=== PATIENT | female | born 1945 | race Caucasian/White ===

== ENCOUNTER → 2020-02-27 | Outpatient (CLI) | payer OTHER ==
--- NOTE | ~2020-02-27 | HC ---
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 HISTORY OF PRESENT ILLNESS: This is a 74-year-old white female who I was asked to see in consultation for possible hyperbaric oxygen therapy given the fact the patient has a surgical wound in a previously irradiated field, which is starting to fail. The patient had a sarcoma removed back in 1992 with subsequent radiation therapy of which she is unsure of the exact amount of dose but does state that she went several times for radiation. The patient subsequently has had a right knee arthroplasty, which became infected and had subsequent removal of the hardware with a spacer placed and myocutaneous flap closure, which failed. The patient has been followed closely by Dr. Dereck Tafoya of Infectious Disease as well as Dr. Ran Mccoy of Plastic Surgery and Dr. Bert Payne of Orthopedics. Dr. Mccoy states he saw the patient today, is concerned that his most recent free flap closure is now starting to fail, which he placed on 02/03/2020. The patient herself states she has essentially minimal pain associated with the surgical wound itself. The patient is very discouraged that the wound has continued to not heal and is optimistic about trying hyperbaric oxygen therapy to possibly salvage the surgical wound and prevent against a possible [id number] amputation. The patient and family are understanding that if the flap continues to fail despite hyperbaric oxygen therapy to aid in the angioneogenesis to help the wound heal, the patient would most likely require an [id number] amputation. Risks and benefits were explained to the patient of hyperbaric oxygen therapy including pulmonary and otic barotrauma and the patient is understanding and wants to proceed with hyperbaric oxygen therapy once insurance has deemed this appropriate. At this time, the patient should qualify for that given the fact the patient has previous radiation to the right lower extremity and subsequent surgical procedure, which is now starting to fail. Please see the complete H and P performed on this patient, which is in [facility]. IMPRESSION: 1. 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 2. 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 3. Degenerative joint disease. PLAN: At this time, we will submit for insurance verification and acceptance for treatment in a soft tissue radionecrosis protocol, which would require approximately 40 hyperbaric oxygen treatments at 2.4 atmospheres absolute with two 5-minute air breaks. Chest x-ray will be performed today as a screening x-ray. Wound care at this time will be continued under the care of Dr. Ran Mccoy. I also spoke at length with the patient about nutritional supplementation to aid in the healing process. By: [id number] Dilip Thakur MD /nt
== END ==
LOC: HYPER 14:18 → RAD 14:21 → HYPER 14:21 → EDBD 14:21 → EDSEX 14:21
DX: T84.53XA Infection and inflammatory reaction due to internal right knee prosthesis, initial encounter (principal); T86.821 Skin graft (allograft) (autograft) failure; B95.2 Enterococcus as the cause of diseases classified elsewhere; D68.2 Hereditary deficiency of other clotting factors; E03.9 Hypothyroidism, unspecified; M47.817 Spondylosis without myelopathy or radiculopathy, lumbosacral region; D68.59 Other primary thrombophilia; G25.81 Restless legs syndrome; K21.9 Gastro-esophageal reflux disease without esophagitis; H40.9 Unspecified glaucoma; M19.90 Unspecified osteoarthritis, unspecified site; F32.9 Major depressive disorder, single episode, unspecified; Z87.891 Personal history of nicotine dependence; Z85.09 Personal history of malignant neoplasm of other digestive organs; Z85.831 Personal history of malignant neoplasm of soft tissue; Z96.621 Presence of right artificial elbow joint; Z79.01 Long term (current) use of anticoagulants; Y83.2 Surgical operation with anastomosis, bypass or graft as the cause of abnormal reaction of the patient, or of later complication, without mention of misadventure at the time of the procedure; Y83.1 Surgical operation with implant of artificial internal device as the cause of abnormal reaction of the patient, or of later complication, without mention of misadventure at the time of the procedure; Y92.89 Other specified places as the place of occurrence of the external cause

== ENCOUNTER → 2020-03-05 | Outpatient (CLI) | payer OTHER | LOC: HYPER 09:12 | DX: T84.53XD Infection and inflammatory reaction due to internal right knee prosthesis, subsequent encounter (principal); L59.8 Other specified disorders of the skin and subcutaneous tissue related to radiation; M87.88 Other osteonecrosis, other site; B95.2 Enterococcus as the cause of diseases classified elsewhere; D68.2 Hereditary deficiency of other clotting factors; E03.9 Hypothyroidism, unspecified; G25.81 Restless legs syndrome; K21.9 Gastro-esophageal reflux disease without esophagitis; H40.9 Unspecified glaucoma; M19.90 Unspecified osteoarthritis, unspecified site; F32.9 Major depressive disorder, single episode, unspecified; Z85.09 Personal history of malignant neoplasm of other digestive organs; Z85.831 Personal history of malignant neoplasm of soft tissue; Y83.1 Surgical operation with implant of artificial internal device as the cause of abnormal reaction of the patient, or of later complication, without mention of misadventure at the time of the procedure; Y84.2 Radiological procedure and radiotherapy as the cause of abnormal reaction of the patient, or of later complication, without mention of misadventure at the time of the procedure ==

== ENCOUNTER → 2020-03-06 | Outpatient (CLI) | payer OTHER | LOC: HYPER 03-05 16:04 | DX: T84.53XD Infection and inflammatory reaction due to internal right knee prosthesis, subsequent encounter (principal); L59.8 Other specified disorders of the skin and subcutaneous tissue related to radiation; B95.2 Enterococcus as the cause of diseases classified elsewhere; D68.2 Hereditary deficiency of other clotting factors; D68.51 Activated protein C resistance; E03.9 Hypothyroidism, unspecified; G25.81 Restless legs syndrome; H40.9 Unspecified glaucoma; K21.9 Gastro-esophageal reflux disease without esophagitis; M19.90 Unspecified osteoarthritis, unspecified site; M87.88 Other osteonecrosis, other site; F32.9 Major depressive disorder, single episode, unspecified; Z85.05 Personal history of malignant neoplasm of liver; Y84.2 Radiological procedure and radiotherapy as the cause of abnormal reaction of the patient, or of later complication, without mention of misadventure at the time of the procedure ==

== ENCOUNTER → 2020-03-07 | Outpatient (CLI) | payer OTHER ==
[~2020-03-07] MED LIST: CRESTOR10 MG PO; EFFEXOR XR37.5 MG PO; ELIQUIS5 MG PO; FLAGYL 250 MG250 MG PO; LUMIGAN5 ML INTRAOCULR; MYRBETRIQ25 MG PO; PROTONIX 20 MG20 MG PO; REQUIP 1 MG TABL1 M1 PO; SYNTHROID25 MC1 PO
== END ==
LOC: HYPER 11:28
DX: T84.53XD Infection and inflammatory reaction due to internal right knee prosthesis, subsequent encounter (principal); L59.8 Other specified disorders of the skin and subcutaneous tissue related to radiation; M87.88 Other osteonecrosis, other site; B95.2 Enterococcus as the cause of diseases classified elsewhere; D68.2 Hereditary deficiency of other clotting factors; D68.51 Activated protein C resistance; E03.9 Hypothyroidism, unspecified; H40.9 Unspecified glaucoma; G25.81 Restless legs syndrome; K21.9 Gastro-esophageal reflux disease without esophagitis; K72.90 Hepatic failure, unspecified without coma; M19.90 Unspecified osteoarthritis, unspecified site; F32.9 Major depressive disorder, single episode, unspecified; Z87.891 Personal history of nicotine dependence; Z85.05 Personal history of malignant neoplasm of liver; Y84.2 Radiological procedure and radiotherapy as the cause of abnormal reaction of the patient, or of later complication, without mention of misadventure at the time of the procedure

== ENCOUNTER → 2020-03-08 | Outpatient (CLI) | payer OTHER | LOC: HYPER 10:10 | DX: T84.53XD Infection and inflammatory reaction due to internal right knee prosthesis, subsequent encounter (principal); L59.8 Other specified disorders of the skin and subcutaneous tissue related to radiation; B95.2 Enterococcus as the cause of diseases classified elsewhere; D68.2 Hereditary deficiency of other clotting factors; D68.51 Activated protein C resistance; E03.9 Hypothyroidism, unspecified; G25.81 Restless legs syndrome; H40.9 Unspecified glaucoma; K21.9 Gastro-esophageal reflux disease without esophagitis; M19.90 Unspecified osteoarthritis, unspecified site; M87.88 Other osteonecrosis, other site; F32.9 Major depressive disorder, single episode, unspecified; Z85.05 Personal history of malignant neoplasm of liver; Z87.891 Personal history of nicotine dependence; Y84.2 Radiological procedure and radiotherapy as the cause of abnormal reaction of the patient, or of later complication, without mention of misadventure at the time of the procedure ==

== ENCOUNTER → 2020-03-08 | Outpatient (CLI) | payer OTHER ==
--- NOTE | 2020-03-08 14:34 | NUR ---
IN TO DECLOT PICC LINE. ON HOME IV ANTIBIOTICS. ABLE TO FLUSH PICC EASILY HOWEVER NO BLOOD RETURN. TRIED REPOSITIONING WITH NO RESULTS. INSTILLED CATH CAMILO AND LET DWELL FOR ONE HOUR. STILL UNABLE TO GET BLOOD RETURN. PATIENT HAD APPT WITH DR. JONES AFTER THIS SO DISCHARGED. INSTRUCTED PATIENT TO LET DR. JONES KNOW AND IF NEEDS PICC LINE REPLACED CAN COME BACK TOMORROW.
== END ==
LOC: OPONC 12:30
DX: Z45.2 Encounter for adjustment and management of vascular access device (principal); T84.53XD Infection and inflammatory reaction due to internal right knee prosthesis, subsequent encounter; X58.XXXD Exposure to other specified factors, subsequent encounter
CPT/HCPCS: 95113

== ENCOUNTER → 2020-03-09 | Outpatient (CLI) | payer OTHER | LOC: HYPER 10:00 | DX: T84.53XD Infection and inflammatory reaction due to internal right knee prosthesis, subsequent encounter (principal); L59.8 Other specified disorders of the skin and subcutaneous tissue related to radiation; B95.2 Enterococcus as the cause of diseases classified elsewhere; D68.2 Hereditary deficiency of other clotting factors; D68.51 Activated protein C resistance; E03.9 Hypothyroidism, unspecified; G25.81 Restless legs syndrome; H40.9 Unspecified glaucoma; K21.9 Gastro-esophageal reflux disease without esophagitis; M19.90 Unspecified osteoarthritis, unspecified site; M87.88 Other osteonecrosis, other site; F32.9 Major depressive disorder, single episode, unspecified; Z87.891 Personal history of nicotine dependence; Z85.05 Personal history of malignant neoplasm of liver; Y84.2 Radiological procedure and radiotherapy as the cause of abnormal reaction of the patient, or of later complication, without mention of misadventure at the time of the procedure ==

== ENCOUNTER → 2020-03-12 | Outpatient (CLI) | payer OTHER | LOC: HYPER 10:07 | DX: T84.53XD Infection and inflammatory reaction due to internal right knee prosthesis, subsequent encounter (principal); L59.8 Other specified disorders of the skin and subcutaneous tissue related to radiation; B95.2 Enterococcus as the cause of diseases classified elsewhere; D68.59 Other primary thrombophilia; D68.2 Hereditary deficiency of other clotting factors; D68.51 Activated protein C resistance; E03.9 Hypothyroidism, unspecified; G25.81 Restless legs syndrome; H40.9 Unspecified glaucoma; M19.90 Unspecified osteoarthritis, unspecified site; M47.817 Spondylosis without myelopathy or radiculopathy, lumbosacral region; M87.88 Other osteonecrosis, other site; K21.9 Gastro-esophageal reflux disease without esophagitis; F32.9 Major depressive disorder, single episode, unspecified; Z85.05 Personal history of malignant neoplasm of liver; Y84.2 Radiological procedure and radiotherapy as the cause of abnormal reaction of the patient, or of later complication, without mention of misadventure at the time of the procedure ==

== ENCOUNTER → 2020-03-13 | Outpatient (CLI) | payer OTHER | LOC: HYPER 13:37 | DX: T84.53XD Infection and inflammatory reaction due to internal right knee prosthesis, subsequent encounter (principal); L59.8 Other specified disorders of the skin and subcutaneous tissue related to radiation; B95.2 Enterococcus as the cause of diseases classified elsewhere; D68.2 Hereditary deficiency of other clotting factors; D68.51 Activated protein C resistance; E03.9 Hypothyroidism, unspecified; G25.81 Restless legs syndrome; H40.9 Unspecified glaucoma; K21.9 Gastro-esophageal reflux disease without esophagitis; M19.90 Unspecified osteoarthritis, unspecified site; M87.88 Other osteonecrosis, other site; F32.9 Major depressive disorder, single episode, unspecified; Z87.891 Personal history of nicotine dependence; Z85.05 Personal history of malignant neoplasm of liver; Y84.2 Radiological procedure and radiotherapy as the cause of abnormal reaction of the patient, or of later complication, without mention of misadventure at the time of the procedure ==

== ENCOUNTER → 2020-03-14 | Outpatient (CLI) | payer OTHER | LOC: HYPER 09:50 | DX: T84.53XD Infection and inflammatory reaction due to internal right knee prosthesis, subsequent encounter (principal); L59.8 Other specified disorders of the skin and subcutaneous tissue related to radiation; M87.88 Other osteonecrosis, other site; B95.2 Enterococcus as the cause of diseases classified elsewhere; D68.2 Hereditary deficiency of other clotting factors; D68.51 Activated protein C resistance; E03.9 Hypothyroidism, unspecified; G25.81 Restless legs syndrome; H40.9 Unspecified glaucoma; K21.9 Gastro-esophageal reflux disease without esophagitis; M19.90 Unspecified osteoarthritis, unspecified site; F32.9 Major depressive disorder, single episode, unspecified; Z87.891 Personal history of nicotine dependence; Z85.05 Personal history of malignant neoplasm of liver; Y84.2 Radiological procedure and radiotherapy as the cause of abnormal reaction of the patient, or of later complication, without mention of misadventure at the time of the procedure ==

== ENCOUNTER → 2020-03-15 | Outpatient (CLI) | payer OTHER | LOC: HYPER 09:14 | DX: T84.53XD Infection and inflammatory reaction due to internal right knee prosthesis, subsequent encounter (principal); L59.8 Other specified disorders of the skin and subcutaneous tissue related to radiation; B95.2 Enterococcus as the cause of diseases classified elsewhere; D68.2 Hereditary deficiency of other clotting factors; D68.51 Activated protein C resistance; E03.9 Hypothyroidism, unspecified; G25.81 Restless legs syndrome; H40.9 Unspecified glaucoma; K21.9 Gastro-esophageal reflux disease without esophagitis; M19.90 Unspecified osteoarthritis, unspecified site; M87.88 Other osteonecrosis, other site; F32.9 Major depressive disorder, single episode, unspecified; Z87.891 Personal history of nicotine dependence; Z85.05 Personal history of malignant neoplasm of liver; Y84.2 Radiological procedure and radiotherapy as the cause of abnormal reaction of the patient, or of later complication, without mention of misadventure at the time of the procedure ==

== ENCOUNTER → 2020-03-16 | Outpatient (CLI) | payer OTHER ==
[2020-03-16 15:22] VITALS: BP 143/65
--- NOTE | 2020-03-16 15:33 | NUR ---
IN FOR 1ST DOSE OF DAPTOMYCIN. STATED FEELING WELL. DENIED PAIN. AMBULATED WITH USE OF WALKER. PICC SITE WNL. TOLERATED DAPTOMYCIN WELL. OBSERVED FOR 15 MINUTES AND THEN DISMISSED IN STABLE CONDITION. TO CONTINUE IV ANTIBIOTICS AT HOME WITH HOME HEALTH.
== END ==
LOC: HYPER 09:55
DX: T84.53XD Infection and inflammatory reaction due to internal right knee prosthesis, subsequent encounter (principal); L59.8 Other specified disorders of the skin and subcutaneous tissue related to radiation; M87.88 Other osteonecrosis, other site; B95.2 Enterococcus as the cause of diseases classified elsewhere; D68.2 Hereditary deficiency of other clotting factors; E03.9 Hypothyroidism, unspecified; G25.81 Restless legs syndrome; D68.51 Activated protein C resistance; H40.9 Unspecified glaucoma; K21.9 Gastro-esophageal reflux disease without esophagitis; M19.90 Unspecified osteoarthritis, unspecified site; F32.9 Major depressive disorder, single episode, unspecified; Z87.891 Personal history of nicotine dependence; Z85.05 Personal history of malignant neoplasm of liver; Y84.2 Radiological procedure and radiotherapy as the cause of abnormal reaction of the patient, or of later complication, without mention of misadventure at the time of the procedure
CPT/HCPCS: 95000

== ENCOUNTER → 2020-03-19 | Outpatient (CLI) | payer OTHER | LOC: HYPER 09:46 | DX: T84.53XD Infection and inflammatory reaction due to internal right knee prosthesis, subsequent encounter (principal); L59.8 Other specified disorders of the skin and subcutaneous tissue related to radiation; B95.2 Enterococcus as the cause of diseases classified elsewhere; D68.2 Hereditary deficiency of other clotting factors; M87.88 Other osteonecrosis, other site; E03.9 Hypothyroidism, unspecified; G25.81 Restless legs syndrome; K21.9 Gastro-esophageal reflux disease without esophagitis; M19.90 Unspecified osteoarthritis, unspecified site; H40.9 Unspecified glaucoma; F32.9 Major depressive disorder, single episode, unspecified; Z85.09 Personal history of malignant neoplasm of other digestive organs; Z85.831 Personal history of malignant neoplasm of soft tissue; Z87.891 Personal history of nicotine dependence; Y84.2 Radiological procedure and radiotherapy as the cause of abnormal reaction of the patient, or of later complication, without mention of misadventure at the time of the procedure; Y83.1 Surgical operation with implant of artificial internal device as the cause of abnormal reaction of the patient, or of later complication, without mention of misadventure at the time of the procedure ==

== ENCOUNTER → 2020-03-20 | Outpatient (CLI) | payer OTHER | LOC: HYPER 08:39 | DX: T84.53XD Infection and inflammatory reaction due to internal right knee prosthesis, subsequent encounter (principal); L59.8 Other specified disorders of the skin and subcutaneous tissue related to radiation; B95.2 Enterococcus as the cause of diseases classified elsewhere; D68.59 Other primary thrombophilia; D68.2 Hereditary deficiency of other clotting factors; D68.51 Activated protein C resistance; E03.9 Hypothyroidism, unspecified; G25.81 Restless legs syndrome; H40.9 Unspecified glaucoma; K21.9 Gastro-esophageal reflux disease without esophagitis; M47.817 Spondylosis without myelopathy or radiculopathy, lumbosacral region; M19.90 Unspecified osteoarthritis, unspecified site; F32.9 Major depressive disorder, single episode, unspecified; Z85.05 Personal history of malignant neoplasm of liver; Z87.891 Personal history of nicotine dependence; Y84.2 Radiological procedure and radiotherapy as the cause of abnormal reaction of the patient, or of later complication, without mention of misadventure at the time of the procedure; M87.88 Other osteonecrosis, other site ==

== ENCOUNTER → 2020-03-21 | Outpatient (CLI) | payer OTHER | LOC: HYPER 08:33 | DX: T84.53XD Infection and inflammatory reaction due to internal right knee prosthesis, subsequent encounter (principal); L59.8 Other specified disorders of the skin and subcutaneous tissue related to radiation; B95.2 Enterococcus as the cause of diseases classified elsewhere; D68.2 Hereditary deficiency of other clotting factors; D68.51 Activated protein C resistance; E03.9 Hypothyroidism, unspecified; G25.81 Restless legs syndrome; H40.9 Unspecified glaucoma; K21.9 Gastro-esophageal reflux disease without esophagitis; M19.90 Unspecified osteoarthritis, unspecified site; M87.88 Other osteonecrosis, other site; F32.9 Major depressive disorder, single episode, unspecified; Z85.05 Personal history of malignant neoplasm of liver; Z87.891 Personal history of nicotine dependence; Y84.2 Radiological procedure and radiotherapy as the cause of abnormal reaction of the patient, or of later complication, without mention of misadventure at the time of the procedure ==

== ENCOUNTER → 2020-03-22 | Outpatient (CLI) | payer OTHER | LOC: HYPER 10:15 | DX: T84.53XD Infection and inflammatory reaction due to internal right knee prosthesis, subsequent encounter (principal); T81.89XD Other complications of procedures, not elsewhere classified, subsequent encounter; L59.8 Other specified disorders of the skin and subcutaneous tissue related to radiation; L84 Corns and callosities; B95.2 Enterococcus as the cause of diseases classified elsewhere; D68.59 Other primary thrombophilia; D68.2 Hereditary deficiency of other clotting factors; D68.51 Activated protein C resistance; E03.9 Hypothyroidism, unspecified; G25.81 Restless legs syndrome; H40.9 Unspecified glaucoma; K21.9 Gastro-esophageal reflux disease without esophagitis; M19.90 Unspecified osteoarthritis, unspecified site; M47.817 Spondylosis without myelopathy or radiculopathy, lumbosacral region; M87.88 Other osteonecrosis, other site; F32.9 Major depressive disorder, single episode, unspecified; Z87.891 Personal history of nicotine dependence; Z85.05 Personal history of malignant neoplasm of liver; Y84.2 Radiological procedure and radiotherapy as the cause of abnormal reaction of the patient, or of later complication, without mention of misadventure at the time of the procedure; Y83.8 Other surgical procedures as the cause of abnormal reaction of the patient, or of later complication, without mention of misadventure at the time of the procedure ==

== ENCOUNTER → 2020-03-23 | Outpatient (CLI) | payer OTHER | LOC: HYPER 07:46 | DX: T84.53XD Infection and inflammatory reaction due to internal right knee prosthesis, subsequent encounter (principal); L59.8 Other specified disorders of the skin and subcutaneous tissue related to radiation; B95.2 Enterococcus as the cause of diseases classified elsewhere; D68.2 Hereditary deficiency of other clotting factors; L84 Corns and callosities; M47.817 Spondylosis without myelopathy or radiculopathy, lumbosacral region; D68.59 Other primary thrombophilia; M87.88 Other osteonecrosis, other site; E03.9 Hypothyroidism, unspecified; G25.81 Restless legs syndrome; K21.9 Gastro-esophageal reflux disease without esophagitis; H40.9 Unspecified glaucoma; M19.90 Unspecified osteoarthritis, unspecified site; F32.9 Major depressive disorder, single episode, unspecified; Z85.09 Personal history of malignant neoplasm of other digestive organs; Z87.891 Personal history of nicotine dependence; Z79.01 Long term (current) use of anticoagulants; Y84.1 Kidney dialysis as the cause of abnormal reaction of the patient, or of later complication, without mention of misadventure at the time of the procedure ==

== ENCOUNTER → 2020-03-26 | Outpatient (CLI) | payer OTHER | LOC: HYPER 11:44 | DX: T84.53XD Infection and inflammatory reaction due to internal right knee prosthesis, subsequent encounter (principal); B95.2 Enterococcus as the cause of diseases classified elsewhere; L59.8 Other specified disorders of the skin and subcutaneous tissue related to radiation; D68.2 Hereditary deficiency of other clotting factors; M87.88 Other osteonecrosis, other site; E03.9 Hypothyroidism, unspecified; G25.81 Restless legs syndrome; K21.9 Gastro-esophageal reflux disease without esophagitis; H40.9 Unspecified glaucoma; M19.90 Unspecified osteoarthritis, unspecified site; F32.9 Major depressive disorder, single episode, unspecified; Z87.891 Personal history of nicotine dependence; Z85.09 Personal history of malignant neoplasm of other digestive organs; Z79.01 Long term (current) use of anticoagulants; Y83.1 Surgical operation with implant of artificial internal device as the cause of abnormal reaction of the patient, or of later complication, without mention of misadventure at the time of the procedure; Y84.2 Radiological procedure and radiotherapy as the cause of abnormal reaction of the patient, or of later complication, without mention of misadventure at the time of the procedure ==

== ENCOUNTER → 2020-03-27 | Outpatient (CLI) | payer OTHER | LOC: HYPER 11:23 | DX: T84.53XD Infection and inflammatory reaction due to internal right knee prosthesis, subsequent encounter (principal); L59.8 Other specified disorders of the skin and subcutaneous tissue related to radiation; L84 Corns and callosities; B95.2 Enterococcus as the cause of diseases classified elsewhere; D68.59 Other primary thrombophilia; D68.2 Hereditary deficiency of other clotting factors; D68.51 Activated protein C resistance; E03.9 Hypothyroidism, unspecified; G25.81 Restless legs syndrome; H40.9 Unspecified glaucoma; K21.9 Gastro-esophageal reflux disease without esophagitis; M47.817 Spondylosis without myelopathy or radiculopathy, lumbosacral region; M87.88 Other osteonecrosis, other site; M19.90 Unspecified osteoarthritis, unspecified site; F32.9 Major depressive disorder, single episode, unspecified; Z85.05 Personal history of malignant neoplasm of liver; Z96.651 Presence of right artificial knee joint; Z87.891 Personal history of nicotine dependence; Y84.2 Radiological procedure and radiotherapy as the cause of abnormal reaction of the patient, or of later complication, without mention of misadventure at the time of the procedure ==

== ENCOUNTER → 2020-03-28 | Outpatient (CLI) | payer OTHER | LOC: HYPER 09:48 | DX: T84.53XD Infection and inflammatory reaction due to internal right knee prosthesis, subsequent encounter (principal); L59.8 Other specified disorders of the skin and subcutaneous tissue related to radiation; L84 Corns and callosities; B95.2 Enterococcus as the cause of diseases classified elsewhere; D68.51 Activated protein C resistance; D68.59 Other primary thrombophilia; D68.2 Hereditary deficiency of other clotting factors; E03.9 Hypothyroidism, unspecified; G25.81 Restless legs syndrome; H40.9 Unspecified glaucoma; K21.9 Gastro-esophageal reflux disease without esophagitis; M47.817 Spondylosis without myelopathy or radiculopathy, lumbosacral region; M19.90 Unspecified osteoarthritis, unspecified site; M87.88 Other osteonecrosis, other site; F32.9 Major depressive disorder, single episode, unspecified; Z87.891 Personal history of nicotine dependence; Z85.05 Personal history of malignant neoplasm of liver; Z96.651 Presence of right artificial knee joint; Y84.2 Radiological procedure and radiotherapy as the cause of abnormal reaction of the patient, or of later complication, without mention of misadventure at the time of the procedure ==

== ENCOUNTER → 2020-03-29 | Outpatient (CLI) | payer OTHER | LOC: HYPER 09:43 | DX: T84.53XD Infection and inflammatory reaction due to internal right knee prosthesis, subsequent encounter (principal); L59.8 Other specified disorders of the skin and subcutaneous tissue related to radiation; B95.2 Enterococcus as the cause of diseases classified elsewhere; D68.2 Hereditary deficiency of other clotting factors; D68.51 Activated protein C resistance; E03.9 Hypothyroidism, unspecified; G25.81 Restless legs syndrome; H40.9 Unspecified glaucoma; K21.9 Gastro-esophageal reflux disease without esophagitis; M19.90 Unspecified osteoarthritis, unspecified site; M87.88 Other osteonecrosis, other site; F32.9 Major depressive disorder, single episode, unspecified; Z85.05 Personal history of malignant neoplasm of liver; Z87.891 Personal history of nicotine dependence; Y84.2 Radiological procedure and radiotherapy as the cause of abnormal reaction of the patient, or of later complication, without mention of misadventure at the time of the procedure ==

== ENCOUNTER → 2020-03-30 | Outpatient (CLI) | payer OTHER | LOC: HYPER 09:48 | DX: T84.53XD Infection and inflammatory reaction due to internal right knee prosthesis, subsequent encounter (principal); L59.8 Other specified disorders of the skin and subcutaneous tissue related to radiation; B95.2 Enterococcus as the cause of diseases classified elsewhere; D68.2 Hereditary deficiency of other clotting factors; M87.88 Other osteonecrosis, other site; E03.9 Hypothyroidism, unspecified; G25.81 Restless legs syndrome; K21.9 Gastro-esophageal reflux disease without esophagitis; M19.90 Unspecified osteoarthritis, unspecified site; H40.9 Unspecified glaucoma; F32.9 Major depressive disorder, single episode, unspecified; Z85.09 Personal history of malignant neoplasm of other digestive organs; Z87.891 Personal history of nicotine dependence; Z79.01 Long term (current) use of anticoagulants; Y84.2 Radiological procedure and radiotherapy as the cause of abnormal reaction of the patient, or of later complication, without mention of misadventure at the time of the procedure; Y83.1 Surgical operation with implant of artificial internal device as the cause of abnormal reaction of the patient, or of later complication, without mention of misadventure at the time of the procedure ==

== ENCOUNTER → 2020-04-02 | Outpatient (CLI) | payer OTHER | LOC: HYPER 09:38 | DX: T84.53XD Infection and inflammatory reaction due to internal right knee prosthesis, subsequent encounter (principal); L59.8 Other specified disorders of the skin and subcutaneous tissue related to radiation; B95.2 Enterococcus as the cause of diseases classified elsewhere; D68.2 Hereditary deficiency of other clotting factors; M87.88 Other osteonecrosis, other site; E03.9 Hypothyroidism, unspecified; G25.81 Restless legs syndrome; K21.9 Gastro-esophageal reflux disease without esophagitis; H40.9 Unspecified glaucoma; M19.90 Unspecified osteoarthritis, unspecified site; F32.9 Major depressive disorder, single episode, unspecified; Z85.09 Personal history of malignant neoplasm of other digestive organs; Z87.891 Personal history of nicotine dependence; Y84.2 Radiological procedure and radiotherapy as the cause of abnormal reaction of the patient, or of later complication, without mention of misadventure at the time of the procedure; Y83.1 Surgical operation with implant of artificial internal device as the cause of abnormal reaction of the patient, or of later complication, without mention of misadventure at the time of the procedure ==

== ENCOUNTER → 2020-04-03 | Outpatient (CLI) | payer OTHER | LOC: HYPER 10:00 | DX: T84.53XD Infection and inflammatory reaction due to internal right knee prosthesis, subsequent encounter (principal); L59.8 Other specified disorders of the skin and subcutaneous tissue related to radiation; B95.2 Enterococcus as the cause of diseases classified elsewhere; D68.2 Hereditary deficiency of other clotting factors; D68.51 Activated protein C resistance; E03.9 Hypothyroidism, unspecified; G25.81 Restless legs syndrome; H40.9 Unspecified glaucoma; K21.9 Gastro-esophageal reflux disease without esophagitis; M19.90 Unspecified osteoarthritis, unspecified site; M87.88 Other osteonecrosis, other site; F32.9 Major depressive disorder, single episode, unspecified; Z87.891 Personal history of nicotine dependence; Z85.05 Personal history of malignant neoplasm of liver; Y84.2 Radiological procedure and radiotherapy as the cause of abnormal reaction of the patient, or of later complication, without mention of misadventure at the time of the procedure ==

== ENCOUNTER → 2020-04-04 | Outpatient (CLI) | payer OTHER | LOC: HYPER 08:45 | DX: T84.53XD Infection and inflammatory reaction due to internal right knee prosthesis, subsequent encounter (principal); L59.8 Other specified disorders of the skin and subcutaneous tissue related to radiation; B95.2 Enterococcus as the cause of diseases classified elsewhere; D68.2 Hereditary deficiency of other clotting factors; D68.51 Activated protein C resistance; E03.9 Hypothyroidism, unspecified; G25.81 Restless legs syndrome; H40.9 Unspecified glaucoma; K21.9 Gastro-esophageal reflux disease without esophagitis; M19.90 Unspecified osteoarthritis, unspecified site; M87.88 Other osteonecrosis, other site; F32.9 Major depressive disorder, single episode, unspecified; Z85.05 Personal history of malignant neoplasm of liver; Z87.891 Personal history of nicotine dependence; Y84.2 Radiological procedure and radiotherapy as the cause of abnormal reaction of the patient, or of later complication, without mention of misadventure at the time of the procedure ==

== ENCOUNTER → 2020-04-05 | Outpatient (CLI) | payer OTHER | LOC: HYPER 13:49 | DX: T84.53XD Infection and inflammatory reaction due to internal right knee prosthesis, subsequent encounter (principal); L59.8 Other specified disorders of the skin and subcutaneous tissue related to radiation; L84 Corns and callosities; B95.2 Enterococcus as the cause of diseases classified elsewhere; D68.59 Other primary thrombophilia; D68.2 Hereditary deficiency of other clotting factors; D68.51 Activated protein C resistance; E03.9 Hypothyroidism, unspecified; G25.81 Restless legs syndrome; H40.9 Unspecified glaucoma; M19.90 Unspecified osteoarthritis, unspecified site; M47.817 Spondylosis without myelopathy or radiculopathy, lumbosacral region; M87.88 Other osteonecrosis, other site; K21.9 Gastro-esophageal reflux disease without esophagitis; F32.9 Major depressive disorder, single episode, unspecified; Z87.891 Personal history of nicotine dependence; Z85.05 Personal history of malignant neoplasm of liver; Y84.2 Radiological procedure and radiotherapy as the cause of abnormal reaction of the patient, or of later complication, without mention of misadventure at the time of the procedure ==

== ENCOUNTER → 2020-04-06 | Outpatient (CLI) | payer OTHER | LOC: HYPER 11:33 | DX: T84.53XD Infection and inflammatory reaction due to internal right knee prosthesis, subsequent encounter (principal); L59.8 Other specified disorders of the skin and subcutaneous tissue related to radiation; B95.2 Enterococcus as the cause of diseases classified elsewhere; D68.59 Other primary thrombophilia; D68.2 Hereditary deficiency of other clotting factors; D68.51 Activated protein C resistance; E03.9 Hypothyroidism, unspecified; G25.81 Restless legs syndrome; H40.9 Unspecified glaucoma; K21.9 Gastro-esophageal reflux disease without esophagitis; M47.817 Spondylosis without myelopathy or radiculopathy, lumbosacral region; M87.88 Other osteonecrosis, other site; M19.90 Unspecified osteoarthritis, unspecified site; F32.9 Major depressive disorder, single episode, unspecified; Z85.05 Personal history of malignant neoplasm of liver; Z96.651 Presence of right artificial knee joint; Z87.891 Personal history of nicotine dependence; Y84.2 Radiological procedure and radiotherapy as the cause of abnormal reaction of the patient, or of later complication, without mention of misadventure at the time of the procedure ==

== ENCOUNTER → 2020-04-10 | Outpatient (CLI) | payer OTHER | LOC: HYPER 10:56 | DX: T84.53XD Infection and inflammatory reaction due to internal right knee prosthesis, subsequent encounter (principal); B95.2 Enterococcus as the cause of diseases classified elsewhere; D68.2 Hereditary deficiency of other clotting factors; L59.8 Other specified disorders of the skin and subcutaneous tissue related to radiation; D68.51 Activated protein C resistance; E03.9 Hypothyroidism, unspecified; G25.81 Restless legs syndrome; H40.9 Unspecified glaucoma; M19.90 Unspecified osteoarthritis, unspecified site; K21.9 Gastro-esophageal reflux disease without esophagitis; F32.9 Major depressive disorder, single episode, unspecified; Z87.891 Personal history of nicotine dependence; Z85.05 Personal history of malignant neoplasm of liver; M87.88 Other osteonecrosis, other site; Y84.2 Radiological procedure and radiotherapy as the cause of abnormal reaction of the patient, or of later complication, without mention of misadventure at the time of the procedure ==

== ENCOUNTER → 2020-04-11 | Outpatient (CLI) | payer OTHER | LOC: HYPER 11:17 | DX: T84.53XD Infection and inflammatory reaction due to internal right knee prosthesis, subsequent encounter (principal); B95.2 Enterococcus as the cause of diseases classified elsewhere; D68.2 Hereditary deficiency of other clotting factors; L59.8 Other specified disorders of the skin and subcutaneous tissue related to radiation; D68.51 Activated protein C resistance; H40.9 Unspecified glaucoma; M19.90 Unspecified osteoarthritis, unspecified site; M87.88 Other osteonecrosis, other site; K21.9 Gastro-esophageal reflux disease without esophagitis; F32.9 Major depressive disorder, single episode, unspecified; Z87.891 Personal history of nicotine dependence; Z85.05 Personal history of malignant neoplasm of liver; Y84.2 Radiological procedure and radiotherapy as the cause of abnormal reaction of the patient, or of later complication, without mention of misadventure at the time of the procedure ==

== ENCOUNTER → 2020-04-12 | Outpatient (CLI) | payer OTHER | LOC: HYPER 09:43 | DX: T84.53XD Infection and inflammatory reaction due to internal right knee prosthesis, subsequent encounter (principal); L59.8 Other specified disorders of the skin and subcutaneous tissue related to radiation; B95.2 Enterococcus as the cause of diseases classified elsewhere; D68.2 Hereditary deficiency of other clotting factors; D68.51 Activated protein C resistance; E03.9 Hypothyroidism, unspecified; G25.81 Restless legs syndrome; H40.9 Unspecified glaucoma; M87.88 Other osteonecrosis, other site; M19.90 Unspecified osteoarthritis, unspecified site; K21.9 Gastro-esophageal reflux disease without esophagitis; F32.9 Major depressive disorder, single episode, unspecified; Z87.891 Personal history of nicotine dependence; Z85.05 Personal history of malignant neoplasm of liver; Y84.2 Radiological procedure and radiotherapy as the cause of abnormal reaction of the patient, or of later complication, without mention of misadventure at the time of the procedure ==

== ENCOUNTER → 2020-04-13 | Outpatient (CLI) | payer OTHER | LOC: HYPER 08:05 | DX: T84.53XD Infection and inflammatory reaction due to internal right knee prosthesis, subsequent encounter (principal); L59.8 Other specified disorders of the skin and subcutaneous tissue related to radiation; B95.2 Enterococcus as the cause of diseases classified elsewhere; D68.2 Hereditary deficiency of other clotting factors; M47.817 Spondylosis without myelopathy or radiculopathy, lumbosacral region; D68.59 Other primary thrombophilia; M87.88 Other osteonecrosis, other site; E03.9 Hypothyroidism, unspecified; G25.81 Restless legs syndrome; K21.9 Gastro-esophageal reflux disease without esophagitis; H40.9 Unspecified glaucoma; M19.90 Unspecified osteoarthritis, unspecified site; F32.9 Major depressive disorder, single episode, unspecified; Z85.09 Personal history of malignant neoplasm of other digestive organs; Z87.891 Personal history of nicotine dependence; Z79.01 Long term (current) use of anticoagulants; Y84.2 Radiological procedure and radiotherapy as the cause of abnormal reaction of the patient, or of later complication, without mention of misadventure at the time of the procedure; Y83.1 Surgical operation with implant of artificial internal device as the cause of abnormal reaction of the patient, or of later complication, without mention of misadventure at the time of the procedure ==

== ENCOUNTER → 2020-04-16 | Outpatient (CLI) | payer OTHER | LOC: HYPER 08:14 | DX: T84.53XD Infection and inflammatory reaction due to internal right knee prosthesis, subsequent encounter (principal); L59.8 Other specified disorders of the skin and subcutaneous tissue related to radiation; B95.2 Enterococcus as the cause of diseases classified elsewhere; D68.2 Hereditary deficiency of other clotting factors; D68.51 Activated protein C resistance; E03.9 Hypothyroidism, unspecified; G25.81 Restless legs syndrome; H40.9 Unspecified glaucoma; K21.9 Gastro-esophageal reflux disease without esophagitis; M87.88 Other osteonecrosis, other site; M19.90 Unspecified osteoarthritis, unspecified site; F32.9 Major depressive disorder, single episode, unspecified; Z85.05 Personal history of malignant neoplasm of liver; Z87.891 Personal history of nicotine dependence; Y84.2 Radiological procedure and radiotherapy as the cause of abnormal reaction of the patient, or of later complication, without mention of misadventure at the time of the procedure ==

== ENCOUNTER → 2020-04-17 | Outpatient (CLI) | payer OTHER | LOC: HYPER 10:00 | DX: T84.53XD Infection and inflammatory reaction due to internal right knee prosthesis, subsequent encounter (principal); L59.8 Other specified disorders of the skin and subcutaneous tissue related to radiation; M87.88 Other osteonecrosis, other site; D68.2 Hereditary deficiency of other clotting factors; B95.2 Enterococcus as the cause of diseases classified elsewhere; E03.9 Hypothyroidism, unspecified; H40.9 Unspecified glaucoma; K21.9 Gastro-esophageal reflux disease without esophagitis; K72.90 Hepatic failure, unspecified without coma; M19.90 Unspecified osteoarthritis, unspecified site; F32.9 Major depressive disorder, single episode, unspecified; Z87.891 Personal history of nicotine dependence; Z85.89 Personal history of malignant neoplasm of other organs and systems; Y83.8 Other surgical procedures as the cause of abnormal reaction of the patient, or of later complication, without mention of misadventure at the time of the procedure; Y84.2 Radiological procedure and radiotherapy as the cause of abnormal reaction of the patient, or of later complication, without mention of misadventure at the time of the procedure ==

== ENCOUNTER → 2020-04-18 | Outpatient (CLI) | payer OTHER | LOC: HYPER 09:42 | DX: T84.53XD Infection and inflammatory reaction due to internal right knee prosthesis, subsequent encounter (principal); L59.8 Other specified disorders of the skin and subcutaneous tissue related to radiation; L84 Corns and callosities; B95.2 Enterococcus as the cause of diseases classified elsewhere; D68.59 Other primary thrombophilia; D68.2 Hereditary deficiency of other clotting factors; D68.51 Activated protein C resistance; E03.9 Hypothyroidism, unspecified; G25.81 Restless legs syndrome; H40.9 Unspecified glaucoma; K21.9 Gastro-esophageal reflux disease without esophagitis; M47.817 Spondylosis without myelopathy or radiculopathy, lumbosacral region; M87.88 Other osteonecrosis, other site; F32.9 Major depressive disorder, single episode, unspecified; Z85.05 Personal history of malignant neoplasm of liver; Z87.891 Personal history of nicotine dependence; Y84.2 Radiological procedure and radiotherapy as the cause of abnormal reaction of the patient, or of later complication, without mention of misadventure at the time of the procedure ==

== ENCOUNTER → 2020-04-19 | Outpatient (CLI) | payer OTHER | LOC: HYPER 07:57 | DX: T84.53XD Infection and inflammatory reaction due to internal right knee prosthesis, subsequent encounter (principal); L59.8 Other specified disorders of the skin and subcutaneous tissue related to radiation; B95.2 Enterococcus as the cause of diseases classified elsewhere; D68.2 Hereditary deficiency of other clotting factors; D68.51 Activated protein C resistance; E03.9 Hypothyroidism, unspecified; G25.81 Restless legs syndrome; H40.9 Unspecified glaucoma; K21.9 Gastro-esophageal reflux disease without esophagitis; M19.90 Unspecified osteoarthritis, unspecified site; M87.88 Other osteonecrosis, other site; F32.9 Major depressive disorder, single episode, unspecified; Z87.891 Personal history of nicotine dependence; Z85.05 Personal history of malignant neoplasm of liver; Y84.2 Radiological procedure and radiotherapy as the cause of abnormal reaction of the patient, or of later complication, without mention of misadventure at the time of the procedure ==

== ENCOUNTER → 2020-04-20 | Outpatient (CLI) | payer OTHER | LOC: HYPER 16:06 | DX: T84.53XD Infection and inflammatory reaction due to internal right knee prosthesis, subsequent encounter (principal); L59.8 Other specified disorders of the skin and subcutaneous tissue related to radiation; M87.88 Other osteonecrosis, other site; B95.2 Enterococcus as the cause of diseases classified elsewhere; D68.2 Hereditary deficiency of other clotting factors; E03.9 Hypothyroidism, unspecified; G25.81 Restless legs syndrome; K21.9 Gastro-esophageal reflux disease without esophagitis; H40.9 Unspecified glaucoma; K72.90 Hepatic failure, unspecified without coma; M19.90 Unspecified osteoarthritis, unspecified site; F32.9 Major depressive disorder, single episode, unspecified; Z85.89 Personal history of malignant neoplasm of other organs and systems; Z85.09 Personal history of malignant neoplasm of other digestive organs; Z87.891 Personal history of nicotine dependence; Y84.2 Radiological procedure and radiotherapy as the cause of abnormal reaction of the patient, or of later complication, without mention of misadventure at the time of the procedure; Y83.1 Surgical operation with implant of artificial internal device as the cause of abnormal reaction of the patient, or of later complication, without mention of misadventure at the time of the procedure ==

== ENCOUNTER → 2020-04-23 | Outpatient (CLI) | payer OTHER | LOC: HYPER 16:30 | DX: T84.53XD Infection and inflammatory reaction due to internal right knee prosthesis, subsequent encounter (principal); L59.8 Other specified disorders of the skin and subcutaneous tissue related to radiation; B95.2 Enterococcus as the cause of diseases classified elsewhere; D68.2 Hereditary deficiency of other clotting factors; M87.88 Other osteonecrosis, other site; E03.9 Hypothyroidism, unspecified; G25.81 Restless legs syndrome; K21.9 Gastro-esophageal reflux disease without esophagitis; H40.9 Unspecified glaucoma; M19.90 Unspecified osteoarthritis, unspecified site; F32.9 Major depressive disorder, single episode, unspecified; Z85.09 Personal history of malignant neoplasm of other digestive organs; Z87.891 Personal history of nicotine dependence; Z79.01 Long term (current) use of anticoagulants; Y84.2 Radiological procedure and radiotherapy as the cause of abnormal reaction of the patient, or of later complication, without mention of misadventure at the time of the procedure; Y83.1 Surgical operation with implant of artificial internal device as the cause of abnormal reaction of the patient, or of later complication, without mention of misadventure at the time of the procedure ==

== ENCOUNTER → 2020-04-25 | Outpatient (CLI) | payer OTHER | LOC: HYPER 07:55 | PROVIDERS: ATTEND Emergency Medicine | DX: T84.53XD Infection and inflammatory reaction due to internal right knee prosthesis, subsequent encounter (principal); L59.8 Other specified disorders of the skin and subcutaneous tissue related to radiation; B95.2 Enterococcus as the cause of diseases classified elsewhere; D68.2 Hereditary deficiency of other clotting factors; E03.9 Hypothyroidism, unspecified; G25.81 Restless legs syndrome; D68.51 Activated protein C resistance; H40.9 Unspecified glaucoma; M19.90 Unspecified osteoarthritis, unspecified site; M87.88 Other osteonecrosis, other site; K21.9 Gastro-esophageal reflux disease without esophagitis; F32.9 Major depressive disorder, single episode, unspecified; Z87.891 Personal history of nicotine dependence; Z85.05 Personal history of malignant neoplasm of liver; Y84.2 Radiological procedure and radiotherapy as the cause of abnormal reaction of the patient, or of later complication, without mention of misadventure at the time of the procedure ==

== ENCOUNTER → 2020-04-26 | Outpatient (CLI) | payer OTHER | LOC: HYPER 07:15 | PROVIDERS: ATTEND Emergency Medicine | DX: T84.53XD Infection and inflammatory reaction due to internal right knee prosthesis, subsequent encounter (principal); L59.8 Other specified disorders of the skin and subcutaneous tissue related to radiation; B95.2 Enterococcus as the cause of diseases classified elsewhere; D68.2 Hereditary deficiency of other clotting factors; D68.51 Activated protein C resistance; E03.9 Hypothyroidism, unspecified; G25.81 Restless legs syndrome; H40.9 Unspecified glaucoma; K21.9 Gastro-esophageal reflux disease without esophagitis; M87.88 Other osteonecrosis, other site; M19.90 Unspecified osteoarthritis, unspecified site; F32.9 Major depressive disorder, single episode, unspecified; Z85.05 Personal history of malignant neoplasm of liver; Z87.891 Personal history of nicotine dependence; Y84.2 Radiological procedure and radiotherapy as the cause of abnormal reaction of the patient, or of later complication, without mention of misadventure at the time of the procedure ==

== ENCOUNTER → 2020-04-27 | Outpatient (CLI) | payer OTHER | LOC: HYPER 07:55 | PROVIDERS: ATTEND Emergency Medicine | DX: T84.53XD Infection and inflammatory reaction due to internal right knee prosthesis, subsequent encounter (principal); L59.8 Other specified disorders of the skin and subcutaneous tissue related to radiation; M87.88 Other osteonecrosis, other site; B95.2 Enterococcus as the cause of diseases classified elsewhere; D68.2 Hereditary deficiency of other clotting factors; E03.9 Hypothyroidism, unspecified; G25.81 Restless legs syndrome; K21.9 Gastro-esophageal reflux disease without esophagitis; H40.9 Unspecified glaucoma; M19.90 Unspecified osteoarthritis, unspecified site; F32.9 Major depressive disorder, single episode, unspecified; Z85.831 Personal history of malignant neoplasm of soft tissue; Z87.891 Personal history of nicotine dependence; Z79.01 Long term (current) use of anticoagulants; Z85.09 Personal history of malignant neoplasm of other digestive organs; Y84.2 Radiological procedure and radiotherapy as the cause of abnormal reaction of the patient, or of later complication, without mention of misadventure at the time of the procedure; Y83.1 Surgical operation with implant of artificial internal device as the cause of abnormal reaction of the patient, or of later complication, without mention of misadventure at the time of the procedure ==